=== PATIENT | female | born 1965 | race African-American/Black ===

== ENCOUNTER 2017-05-29 19:06 | Emergency (ER) | payer OTHER ==
[~2017-05-29] VITALS: Ht 170.2 cm; Wt 99.8 kg
[~2017-05-29 19:06] MED LIST: ACETAMINOPHEN325 M1 PO; AMOXICILLIN 50500 M1 PO; ASA81BEC PO; ASPIRIN EC81 M1 PO; ATENOLOL-CHLOR1 EAC2 PO; ATORVASTATIN CA40 MG PO; CLEOCIN HCL300 MG PO; DILTIAZEM ER240 MG PO; EFFIENT10 MG PO; FLEXERIL PO; GLIMEPIRIDE4 MG PO; HYDROCHLOROTHIA25 M2 PO; IBUPROFEN 600600 M1 PO; IBUPROFEN 800800 M1 PO; IMDUR 30 MG TAB30 M1 PO; KLOR-CON 1010 MEQ PO; LANTUS SOL100 UNIT/1; LANTUS100 UNIT/M SQ; LANTUS100 UNIT/M SUBQ; LIPITOR 20 MG T20 M1 PO; METFORMIN HCL500 M1 PO; METFORMIN HCL500 MG PO; NAPROSYN500 MG PO; NITROGLYCERIN0.4 MG SUBLING; NOHOMEMEDICATIONS; NORCO 5-325 TA1 EACH PO; NOVOLOG100 UNIT/1 SUBQ; PENICILLIN VK500 MG PO; PLAVIX 75 MG TA75 M1 PO; TENORETIC 1001 EACH PO; TENORMIN100 MG PO; TESSALON PERLE100 MG PO; ZPAK PO
[2017-05-29 20:22] LABS: HEMATOCRIT 42.8 % (37.0-47.0); HEMOGLOBIN 14.7 gm/dL (12.0-15.0); MCH 31.1 pg (26.0-34.0); MCHC 34.4 g/dL (28.0-37.0); MCV 90.3 fL (80.0-100.0); RBC 4.74 mil/uL (4.20-5.00); WBC 8.8 thou/uL (4.0-11.0)
[2017-05-29 20:30] LABS: CALCIUM 9.9 mg/dL (8.5-10.1); CREATININE 1.1 mg/dL (0.6-1.0); POTASSIUM 3.7 mmol/L (3.5-5.1)
[2017-05-31 15:06] LABS: NEISSERIA GONORRHEA-PCR Negative (Negative)
== END 2017-05-29 21:58 | disposition home or self-care (01) ==
LOC: ER 19:06
PROVIDERS: Emergency Medicine
DX: N93.8 Other specified abnormal uterine and vaginal bleeding (principal); I10 Essential (primary) hypertension; E78.5 Hyperlipidemia, unspecified; E11.9 Type 2 diabetes mellitus without complications; F17.210 Nicotine dependence, cigarettes, uncomplicated; F10.99 Alcohol use, unspecified with unspecified alcohol-induced disorder; Z86.2 Personal history of diseases of the blood and blood-forming organs and certain disorders involving the immune mechanism; Z79.4 Long term (current) use of insulin

== ENCOUNTER 2017-09-04 14:09 | Emergency (ER) | payer OTHER ==
[~2017-09-04] VITALS: Ht 170.2 cm; Wt 99.8 kg
[2017-09-04] MEDS ORDERED: NEO-POLYCIN EY3.5 GM OPHTHALMIC (15:18)
[2017-09-04 16:00] VITALS: BP 186/89
== END 2017-09-04 15:45 | disposition home or self-care (01) ==
LOC: ER 14:09
DX: B30.9 Viral conjunctivitis, unspecified (principal); I10 Essential (primary) hypertension; E78.00 Pure hypercholesterolemia, unspecified; E11.9 Type 2 diabetes mellitus without complications; F17.210 Nicotine dependence, cigarettes, uncomplicated

== ENCOUNTER 2017-09-27 21:43 | Inpatient (IN) | payer OTHER ==
[~2017-09-27] VITALS: Ht 170.2 cm; Wt 101.0 kg
--- NOTE | ~2017-09-27 | 2DMMODE ---
[facility] [employer] [place] [address] 2 D/M-MODE ECHOCARDIOGRAM Name: REBECCA JACK Room #: 212-P ADM IN M.R.#: [id number] Admission: 09/28/17 Attend Phys: Lauren Butler Discharge: Date of : 61 Date of Service: 09/28/17 1622 Report #: [id number] THIS REPORT FOR: //name// APPROVED REPORT Study performed: 09/28/2017 09:57:27 EXAM: Limited 2D, Doppler, and color-flow Echocardiogram Patient Location: Echo lab Room #: [facility] [place] Status: routine BSA: 2.11 HR: 46 bpm BP: 102/67 mmHg Rhythm: Bradycardia Other Information Study Quality: Good Indications Limited echo. Rule out pericarditis. Hx: TN, stents, HTN, HLP, DM, tobacco abuse. Tricuspid Valve TR Peak Que.: 2.39 m/s RAP Estimate: 5.00 mmHg TR Peak Gr.: 22.93 mmHg PA Pressure: 28.00 mmHg Left Ventricle The left ventricle is normal size. There is normal LV segmental wall motion. Mild concentric left ventricular hypertrophy. Left ventricular systolic function is normal. LVEF is 60-65%. Right Ventricle The right ventricle is normal size. The right ventricular systolic function is normal. Atria Left atrium is dilated. The right atrium size is normal. Aortic Valve Aortic valve is mildly thickened and calcified. No aortic regurgitation is present. There is no aortic valvular stenosis. Mitral Valve Mitral valve leaflets are mildly thickened. Moderate mitral annular [facility] [address] [place] [address] 2 D/M-MODE ECHOCARDIOGRAM Name: REBECCA JACK Room #: 212-P ADM IN M.R.#: [id number] Admission: 09/28/17 Attend Phys: Lauren Butler Discharge: Date of : 61 Date of Service: 09/28/17 1622 Report #: [id number] calcification. There is no mitral valve regurgitation noted. Tricuspid Valve The tricuspid valve is normal in structure. Mild tricuspid regurgitation. Estimated PAP is 25-30mmHg. Pericardium There is no pericardial effusion. <Conclusion> LVEF is 60-65%. There is normal LV segmental wall motion. Mild concentric left ventricular hypertrophy. Left atrium is dilated. There is no aortic valvular stenosis. No aortic regurgitation is present. Mild tricuspid regurgitation. Estimated PAP is 25-30mmHg. There is no pericardial effusion. <ELECTRONICALLY SIGNED> By: Cruz Mckee MD, [facility] 09/28/171621 21 21 Cruz Mckee MD, FACC /INF
--- NOTE | ~2017-09-27 | HC ---
[facility] [place] [address] CONSULTATION Name: REBECCA JACK Room #: 212-P [facility] IN M.R.#: [id number] Admission: 09/28/17 Attend Phys: Lauren Mckee Discharge: 09/28/17 Date of : 61 Report #: [id number] THIS REPORT FOR: //name// CC: Lauren Pate DATE OF SERVICE: 09/28/2017 CHIEF COMPLAINT: Chest pain. HISTORY OF PRESENT ILLNESS: The patient is a 51-year-old -[place] female who presented with severe resting chest pain lasting 2 hours and relieved with nitroglycerin. Paramedics were called and she was given 4 aspirin and another nitroglycerin via Nitropaste and her symptoms resolved. Overnight, she has not had any more chest pain and her ECG had demonstrated a sinus rhythm with normal ST segments on presentation. Cardiac troponin levels are negative. The patient admits to having a viral syndrome with some flu-like symptoms over the last 2 weeks or so. She denies associated symptoms of palpitations, diaphoresis, dizziness, or lightheadedness. She has no cough. She has a history of medically managed coronary artery disease based on a cardiac catheterization by my partner Dr. Daniel. She had a cardiac catheterization in April 2017, which demonstrated 30% mid LAD stenosis, 30% circumflex and 40% obtuse marginal stenosis and a 40% RCA stenosis and normal LV function. Ejection fraction was 60%, it was felt she might have some coronary spasm. She has a history of prior PCI to her circumflex coronary artery and she was scheduled for an outpatient stress test this month apparently. She has diabetes, hyperlipidemia, and hypertension. HOME MEDICATIONS: Include atorvastatin 40 mg daily, lisinopril 10 mg daily, Imdur 30 mg daily, Cardizem 240 mg daily, atenolol 100 mg daily, baby aspirin, and bupropion. SOCIAL HISTORY: She is . There is no tobacco use. FAMILY HISTORY: Positive for high blood pressure and cholesterol. REVIEW OF SYSTEMS: GASTROINTESTINAL: No nausea or vomiting. CARDIOVASCULAR: Positive chest pain. No orthopnea, no PND, no dyspnea with exertion. [facility] [address] [place] [address] CONSULTATION Name: REBECCA JACK Room #: 212-P [facility] IN M.R.#: [id number] Admission: 09/28/17 Attend Phys: Lauren Mckee Discharge: 09/28/17 Date of : 61 Report #: [id number] PULMONARY: No wheezing or asthma. NEUROLOGIC: Denies headaches, blurry vision, or slurred speech. GENERAL: No fevers, positive chills, positive flu. HEMATOLOGIC: No anemia or bleeding disorders. RENAL: No history of kidney failure. ALLERGIES: Denies any aspirin or contrast allergies. PHYSICAL EXAMINATION: VITAL SIGNS: Blood pressure is 102/67, pulse 57. She had heart rates in the low 50s without dizziness and a sinus rhythm, temperature 36.4. GENERAL: Moderately obese, middle-aged female. She is alert, oriented, and in no apparent distress. NECK: Supple. No jugular venous distention. CARDIOVASCULAR: Regular. I cannot hear a murmur or S3. LUNGS: Clear to auscultation. ABDOMEN: Soft, nontender, and nondistended. EXTREMITIES: Show no peripheral edema. SKIN: Warm and dry. LABORATORY DATA: Her cardiac troponin level is 0.04 times 3 sets. Hemoglobin is 13.7. Chest x-ray shows no acute cardiopulmonary abnormality. IMPRESSION: 1. Chest pain. She is ruled out for acute myocardial infarction based on her recent cardiac catheterization, her stent was widely patent this past April, I think that her symptoms could be related to pericarditis as she has had some flu-like symptoms.I Recommended nonsteroidal anti-inflammatory drugs. We will check an echocardiogram to make sure she does not have an effusion. 2. Coronary artery disease. I will continue with aggressive medical therapy. My understanding was she is scheduled for an outpatient stress test, which we will move up and have her follow up with Dr. Daniel. I think she can be discharged today if her echo is normal. 3. Hypertension. This is stable. 3. Bradycardia. She is asymptomatic. 4. Hyperlipidemia. Continue with statin. <ELECTRONICALLY SIGNED> By: Cruz Mckee MD, FACC 11/03/17 0829 0918 1228 Cruz Mckee MD, FACC /nt
--- NOTE | ~2017-09-27 | EKG ---
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: PLACIDO : 1965 Requested By: Omer Sandoval Order Number: [id number] MD: Romain Stiles Measurements Intervals [place] Rate: 54 P: 47 WY: 152 QRS: -10 QRSD: 94 T: 20 QT: 441 QTc: 418 Interpretive Statements Sinus bradycardia Probable left atrial enlargement Compared to ECG 09/08/2016 19:35:46 No significant changes Electronically Signed On 09-28-2017 8:42:28 [employer] by Romain Stiles [email or web address] <ELECTRONICALLY SIGNED> By: Romain Stiles MD, [facility] 09/28/17 0842 46 46 Romain Stiles MD, [facility] /EPI
[~2017-09-27 21:43] MED LIST changes: +NEO-POLYCIN EY3.5 GM OPHTHALMIC
[2017-09-27 21:44] VITALS: BP 157/90
[2017-09-27 22:07] LABS: ABSOLUTE NEUTROPHILS 4.8 thou/uL (1.4-8.2); BASOPHILS 0.7 % (0.0-2.0); EOSINOPHILS 1.6 % (0.0-3.0); HEMATOCRIT 40.8 % (37.0-47.0); HEMOGLOBIN 13.7 gm/dL (12.0-15.0); LYMPHOCYTES 40.6 % (24.0-44.0); MCH 30.7 pg (26.0-34.0); MCHC 33.7 g/dL (28.0-37.0); MCV 91.2 fL (80.0-100.0); MONOCYTES 3.6 % (1.0-8.0); PLATELET COUNT 263 thou/uL (150-400); POLYS 53.5 % (36.0-66.0); RBC 4.48 mil/uL (4.20-5.00); RDW 13.1 % (10.5-14.5)
[2017-09-27] MEDS ORDERED: LEVEMIR SUBQ (22:17)
[2017-09-27] MEDS ORDERED: LISINOPRIL10 MG PO (22:18)
[2017-09-27] MEDS ORDERED: IMDUR 30 MG TAB30 M1 PO (22:18)
[2017-09-27] MEDS ORDERED: WELLBUTRIN SR150 MG PO (22:19)
[2017-09-27 22:20] LABS: ANION GAP 9 mmol/L (7-16); BUN 13 mg/dL (7-18); CALCIUM 9.5 mg/dL (8.5-10.1); CHLORIDE 107 mmol/L (98-107); CO2 25 mmol/L (21-32); GLUCOSE 157 mg/dL (74-106); POTASSIUM 3.6 mmol/L (3.5-5.1); SODIUM 141 mmol/L (136-145)
[2017-09-27 22:28] LABS: ALBUMIN 3.3 g/dL (3.4-5.0); SGOT 12 U/L (15-37); SGPT 18 U/L (30-65); TOTAL BILIRUBIN 0.3 mg/dL (<0.1-1.0); TOTAL PROTEIN 6.8 g/dL (6.4-8.2); TROPONIN-I < 0.04 ng/mL (<0.06)
[2017-09-28] VITALS (7 sets, daily range): BP systolic 95–140; BP diastolic 55–71
[2017-09-28] MEDS ORDERED: NOVOLOG100 UNIT/1 SUBQ (01:34)
[2017-09-28 03:49] LABS: ANION GAP 11 mmol/L (7-16); BUN 13 mg/dL (7-18); CALCIUM 8.9 mg/dL (8.5-10.1); CHLORIDE 108 mmol/L (98-107); CO2 24 mmol/L (21-32); GLUCOSE 138 mg/dL (74-106); POTASSIUM 3.5 mmol/L (3.5-5.1); SODIUM 143 mmol/L (136-145); TROPONIN-I < 0.04 ng/mL (<0.06)
[2017-09-28] MEDS ORDERED: PREDNISONE 20 M20 MG PO (10:43)
== END 2017-09-28 19:00 | disposition home or self-care (01) | DRG 315 ==
LOC: ER 21:43 → 2N 09-28 00:09 → EROBS 09-28 00:09 → 2N 09-28 00:49
PROVIDERS: Nurse Practitioner Family; Physician Assistant
DX: I31.9 Disease of pericardium, unspecified (principal); E44.1 Mild protein-calorie malnutrition; I10 Essential (primary) hypertension; E78.00 Pure hypercholesterolemia, unspecified; D64.9 Anemia, unspecified; E11.9 Type 2 diabetes mellitus without complications; F17.210 Nicotine dependence, cigarettes, uncomplicated; B34.9 Viral infection, unspecified; E78.5 Hyperlipidemia, unspecified; R00.1 Bradycardia, unspecified; I25.10 Atherosclerotic heart disease of native coronary artery without angina pectoris; I25.2 Old myocardial infarction; Z82.49 Family history of ischemic heart disease and other diseases of the circulatory system; Z95.5 Presence of coronary angioplasty implant and graft
CPT/HCPCS: 10081

== ENCOUNTER 2021-07-09 10:41 | Emergency (ER) | payer BC, OTHER ==
[~2021-07-09] VITALS: Ht 165.1 cm; Wt 90.7 kg
[~2021-07-09 10:41] MED LIST changes: +BYDUREON B2 MG/0.85; +HUMALOG100 UNIT/1 SUBQ; +LANTUS SUBQ; +LEVEMIR SUBQ; +LISINOPRIL10 MG PO; +NORCO5 PO; +ONE TOUCH ULTR1 EACH; +PREDNISONE 20 M20 MG PO; +WELLBUTRIN SR150 MG PO; +ZESTORETIC 20-1 EACH PO
[2021-07-09 12:50] VITALS: BP 154/78
== END 2021-07-09 12:50 | disposition home or self-care (01) ==
LOC: ER 10:41
DX: R10.30 Lower abdominal pain, unspecified (principal); M79.605 Pain in left leg; I25.2 Old myocardial infarction; I10 Essential (primary) hypertension; E78.00 Pure hypercholesterolemia, unspecified; E11.9 Type 2 diabetes mellitus without complications; F17.210 Nicotine dependence, cigarettes, uncomplicated; F12.90 Cannabis use, unspecified, uncomplicated; Z98.890 Other specified postprocedural states; Z79.4 Long term (current) use of insulin; Z79.82 Long term (current) use of aspirin; Z79.891 Long term (current) use of opiate analgesic; Z79.899 Other long term (current) drug therapy